=== PATIENT | male | born 1970 | race Caucasian/White ===

== ENCOUNTER → 2017-11-30 | Outpatient (CLI) | payer OTHER | LOC: M WUC 12:39 | DX: J20.9 Acute bronchitis, unspecified (principal) | CPT/HCPCS: 71046 ==

== ENCOUNTER → 2018-04-21 | Outpatient (CLI) | payer OTHER ==
--- NOTE | 2018-04-21 15:49 | REP ---
Clinical: Left shoulder pain . Technique: Internal rotation, external rotation, and Y view. Findings: No acute fracture or dislocation. The acromioclavicular and glenohumeral joints are intact and essentially normal for age. No periarticular calcifications or degenerative changes are appreciated. Sub acromial space is normal. Surrounding soft tissues are unremarkable. Impression: Essentially age-appropriate left shoulder radiographs. Electronically Signed by Magdaleno Dawson MD 04/21/2018 03:41 P
== END ==
LOC: M WUC 15:16
PROVIDERS: ATTEND Physician Assistant
DX: M25.512 Pain in left shoulder (principal); J01.10 Acute frontal sinusitis, unspecified

== ENCOUNTER → 2018-05-07 | Outpatient (CLI) | payer OTHER ==
--- NOTE | 2018-05-07 13:17 | REP ---
MRI LEFT SHOULDER: TECHNIQUE: Axial T2 fat sat, gradient echo, sagittal oblique T2 fat sat, coronal oblique T1, T2 fat sat. There is mild ill-defined high signal in the supraspinatus and subscapularis tendons, compatible with mild tendinopathy/tendonitis. I do not see a rotator cuff tendon tear. There are mild hypertrophic degenerative changes of the acromioclavicular joint with mild subchondral marrow edema and mild downward sloping of the acromion. Acromion is type 2. Biceps tendon is within the bicipital groove. There is mild surrounding fluid. There is no Hill-Sachs deformity. The deltoid muscle demonstrates no abnormal signal. There is fraying at the biceps labral complex. Superior labrum also appears frayed. There is a focal tear of the posterior labrum. A few tiny subchondral cysts are seen in the superolateral humeral head. There is a normal amount of joint fluid. IMPRESSION: Mild supraspinatus and subscapularis tendinopathy/tendonitis without evidence of a rotator cuff tear. Mild hypertrophic degenerative changes acromioclavicular joint, with downward sloping of the acromion, which is type 2. There is fraying of the biceps labral complex and superior labrum. There is a focal tear of the posterior labrum. Electronically Signed by Beto Jorge MD 05/07/2018 11:37 P
== END ==
LOC: M RAD 06:52
PROVIDERS: ATTEND Orthopaedic Surgery Sports Medicine
DX: M65.812 Other synovitis and tenosynovitis, left shoulder (principal)

== ENCOUNTER → 2019-10-14 | Outpatient (REF) | payer OTHER | LOC: M LAB REF 18:29 | PROVIDERS: ATTEND Physician Assistant | DX: D48.9 Neoplasm of uncertain behavior, unspecified (principal) ==